=== PATIENT | male | born 1965 | race Caucasian/White ===

== ENCOUNTER 2017-08-31 13:05 | Emergency (ER) | payer OTHER ==
[2017-08-31 13:09] VITALS: BP 112/63; PULSE 55; RESP 14; TEMP 97.3; O2SAT 100
[2017-08-31] MEDS ORDERED: ROBA500T PO (14:14)
--- NOTE | 2017-08-31 14:25 | PD ---
HPI Chief Complaint: Back/ Neck Pain or Injury Time Seen by Provider: 14:12 Travel History International Travel<30 days: No Contact w/Intl Traveler<30days: No Traveled to known affect area: No History of Present Illness HPI A 52-year-old male presents to the emergency department with the chief complaint of "back was sore". The pain began out of no where this morning at 9 AM and is on the right lower back. It did radiate to the front of the abdomen just below the rib cage. The patient describes the pain as a constant aching pain that is a 6 out of 10 on the pain scale. Moving and taking in a deep breath makes the pain worse and nothing makes the pain better. He denies any association with food. The patient tried taking an over-the- counter muscle relaxant from [employer] that did not alleviate the pain. The patient reports no history of any trauma, falls, or injuries to the area. About 1 hour after the pain started the patient began to walk from his office to the cafeteria and began to get lightheaded. Throughout lunch a friend noticed he started to get pale and sweaty, the patient proceeded to walk back to his office where he had to sit down on a bench because he felt like he was going to pass out. After sitting down for a few minutes he felt better. He denies actually passing out or hitting his head. He has never had back pain like this or experienced an episode of syncope. The patient reports that he ate a normal amount this morning for breakfast and drank a normal amount of water this morning. The patient reports he has not engaged in any out of the ordinary exertional activities. The patient denies any pain with urination, hematuria, fevers, vomiting, diarrhea, shortness of breath, chest pain. [facility] Past Medical History Medical History: Denies Significant Hx Herniated Disk: Yes (C4/C5 disc herniation) Tetanus Vaccination: < 5 Years ?: Not Past Surgical History Surgical History: No Previous Surgery Family History Family History: Negative Social History Alcohol Use: Yes (socially, one to 2 drinks a week) Tobacco Use: No Substance Use: No Allergies-Medications (Allergen,Severity, Reaction): Coded Allergies: No Known Allergies (Unverified , 08/31/17) Reported Meds & Prescriptions Reported Meds & Active Scripts Active Flexeril (Cyclobenzaprine HCl) 10 Mg Tab 10 Mg PO TID Reported Robaxin (Methocarbamol) 500 Mg Tab 1,000 Mg PO QID Review of Systems General / Constitutional: No: Fever, Chills Eyes: No: Diploplia, Blurred Vision HENT: No: Headaches, Sore Throat Cardiovascular: No: Chest Pain or Discomfort, Palpitations Respiratory: No: Shortness of Breath, Wheezing Gastrointestinal: Positive: Nausea, No: Vomiting, Diarrhea, Abdominal Pain Genitourinary: No: Urgency, Frequency, Dysuria, Hematuria Musculoskeletal: No: Myalgias Skin: No Rash Neurologic: No: Dizziness, Syncope Psychiatric: No: Anxiety Physical Exam Narrative GENERAL: Well-developed and well-nourished in no acute respiratory distress SKIN: Warm and dry. HEAD: Atraumatic. Normocephalic. EYES: Pupils equal and round. No scleral icterus. No injection or drainage. ENT: No nasal bleeding or discharge. Mucous membranes pink and moist. NECK: Trachea midline. No JVD. CARDIOVASCULAR: Regular rate and rhythm. ABDOMINAL: Soft, nontender to palpation RESPIRATORY: No accessory muscle use. Clear to auscultation. Breath sounds equal bilaterally. On examination patient's right upper flank and upper back, there is reproducible pain infrascapular in between the ribs. There is no bony deformity noted. GASTROINTESTINAL: Abdomen soft, non-tender, nondistended. Hepatic and splenic margins not palpable. MUSCULOSKELETAL: Extremities without clubbing, cyanosis, or edema. No obvious deformities. Pain is reproducible by palpation. Patient comes uncomfortable when attempting to ambulate. Negative straight leg test. NEUROLOGICAL: Awake and alert. No obvious cranial nerve deficits. Motor grossly within normal limits. Five out of 5 muscle strength in the arms and legs. Normal speech. PSYCHIATRIC: Appropriate mood and affect; insight and judgment normal. Data Data Last Documented VS Vital Signs Date Time Temp Pulse Resp B/P (MAP) Pulse Ox O2 Delivery O2 Flow Rate FiO2 08/31/17 13:09 97.3 55 14 112/63 (79) 100 Orders Orders Comprehensive Metabolic Panel (08/31/17 14:55) Urinalysis - C+S If Indicated (08/31/17 14:55) Labs Laboratory Tests Test 08/31/17 15:10 Urine Color YELLOW Urine Turbidity CLEAR Urine pH 7.0 Urine Specific [place] 1.021 Urine Protein NEG mg/dL Urine Glucose (UA) NEG mg/dL Urine Ketones NEG mg/dL Urine Occult Blood NEG Urine Nitrite NEG Urine Bilirubin NEG Urine Urobilinogen LESS THAN 2.0 MG/DL Urine Leukocyte Esterase NEG Urine RBC 1 /hpf Microscopic Urinalysis Comment CULT NOT INDICATED Blood Urea Nitrogen 14 MG/DL Creatinine 1.08 MG/DL Random Glucose 97 MG/DL Total Protein 7.0 GM/DL Albumin 4.0 GM/DL Calcium Level 9.1 MG/DL Alkaline Phosphatase 61 U/L Aspartate Amino Transf (AST/SGOT) 16 U/L Alanine Aminotransferase (ALT/SGPT) 25 U/L Total Bilirubin 0.6 MG/DL Sodium Level 139 MEQ/L Potassium Level 4.7 MEQ/L Chloride Level 104 MEQ/L Carbon Dioxide Level 29.7 MEQ/L Anion Gap 5 MEQ/L Estimat Glomerular Filtration Rate 72 ML/MIN [facility] Medical Decision Making Medical Screen Exam Complete: Yes Emergency Medical Condition: Yes Differential Diagnosis Muscle strain, rib contusion, intercostal muscle strain, nephrolithiasis, pyelonephritis, shingles, electrolyte abnormality, dehydration, pleurisy, pneumonia, cholelithiasis, cholecystitis Narrative Course 52-year-old male presents with right-sided flank upper back pain. Patient has no reported history of injury. Urinalysis shows no evidence of red blood cells. The pain is reproducible on examination. Gallbladder enzymes are within normal limits as his liver enzymes. Patient will be discharged with a prescription for Flexeril. He is instructed to use ibuprofen 600 mg every 6-8 hours 3 days. Also instructed to use ice 24 hours then moist heat. Instructed return to be DOS any worsening symptoms. Diagnosis Primary Impression: Right flank/upper back pain, suspect intercostal muscle injury. Additional Instructions: Ibuprofen 600 mg every 6-8 hours 3 days take with food. Flexeril 10 mg 3 times daily 3 days. Ice 3 times daily 24 hours, then moist heat 3 times daily 2 days. Return if feeling worse. Follow-up with primary care physician as needed. Do not take Robaxin while taking Flexeril. Med/Other Pt SpecificInfo: Prescription(s) given Scripts Cyclobenzaprine (Flexeril) 10 Mg Tab 10 MG PO TID for Muscle Spasm, #9 TAB 0 Refills Prov: Prasad Mcdonald MD 08/31/17 Disposition: DISCHARGE HOME Condition: Stable Prasad Mcdonald MD Aug 31, 2017 14:25
[2017-08-31 15:42] LABS: AST (GOT) 16 U/L (15-37); BICARBONATE 29.7 MEQ/L (21.0-32.0); BLOOD UREA NITROGEN 14 MG/DL (7-18); CALCIUM 9.1 MG/DL (8.5-10.1); CHLORIDE 104 MEQ/L (98-107); CREATININE 1.08 MG/DL (0.60-1.30); GLOMERULAR FILTRATION RATE 72 ML/MIN (>89); GLUCOSE,RANDOM 97 MG/DL (74-106); SODIUM (NA) 139 MEQ/L (136-145)
[2017-08-31 15:46] LABS: ALKALINE PHOSPHATASE 61 U/L (45-117); ALT (GPT) 25 U/L (12-78); TOTAL BILIRUBIN ADULT 0.6 MG/DL (0.2-1.0)
[2017-08-31 15:49] LABS: BILIRUBIN, URINE NEG (NEG); BLOOD, URINE NEG (NEG); GLUCOSE,URINE NEG (NEG); KETONE, URINE NEG (NEG); NITRITE,URINE NEG (NEG); URINE COLOR YELLOW (YELLW/STRAW); URINE LEUKOCYTE ESTERASE NEG (NEG)
[2017-08-31] MEDS ORDERED: CYCL10TA PO (16:40)
== END 2017-08-31 18:40 | disposition home or self-care (01) ==
LOC: NEPE 13:05
DX: R10.9 Unspecified abdominal pain (principal); M54.9 Dorsalgia, unspecified; R11.0 Nausea
CPT/HCPCS: 80053; 81001; 99283